=== PATIENT | male | born 1965 ===

== ENCOUNTER 2016-10-31 14:58 | Emergency (ER) | payer OTHER ==
--- NOTE | 2016-10-31 15:54 | C.PDOC ---
History Of Present Illness <Quintin Patrick - Last Filed: 10/31/16 15:49> <Kaitlin Mckoy - Last Filed: 10/31/16 16:05> 51 year old male presents to the ED with complaints of pain persisting to left side ribs after falling off of ladder and directly on to a table five days ago. Patient was seen at another hospital, a chest x-ray was performed with results of normal lungs and discharged. Patient denies shortness of breath and any new injuries at this time. (Quintin Patrick) 51 year old male presents to the ED with complaints of pain persisting to left side ribs after falling off of ladder and directly on to a table five days ago. Patient was seen at another hospital, a chest x-ray was performed with results of normal lungs and discharged. Patient denies shortness of breath and any new injuries at this time. (Kaitlin Mckoy) History Per: Patient History/Exam Limitations: no limitations Onset/Duration Of Symptoms: Days (5 days ago) Current Symptoms Are (Timing): Still Present Quality Of Discomfort: "Pain" <Quintin Patrick - Last Filed: 10/31/16 15:49> History Per: Patient History/Exam Limitations: no limitations Onset/Duration Of Symptoms: Days Current Symptoms Are (Timing): Still Present <Kaitlin Mckoy - Last Filed: 10/31/16 16:05> Time Seen by Provider: 10/31/16 15:27 Chief Complaint (Nursing): Back Pain Past Medical History Reviewed: Historical Data, Nursing Documentation, Vital Signs - Medical History PMH: Hyperlipidemia - Social History Hx Alcohol Use: No Hx Substance Use: No - Immunization History Hx Tetanus Toxoid Vaccination: No Hx Influenza Vaccination: No Hx Pneumococcal Vaccination: No <Quintin Patrick - Last Filed: 10/31/16 15:49> Reviewed: Historical Data, Nursing Documentation, Vital Signs Family History: States: Unknown Family Hx <Kaitlin Mckoy - Last Filed: 10/31/16 16:05> Vital Signs: Last Vital Signs Temp 97.9 F 10/31/16 15:10 Pulse 62 10/31/16 15:10 Resp 18 10/31/16 15:10 BP 114/65 10/31/16 15:10 Pulse Ox 96 10/31/16 15:59 Review Of Systems Constitutional: Negative for: Fever, Chills Respiratory: Negative for: Shortness of Breath, Hemoptysis, Wheezing Gastrointestinal: Negative for: Nausea, Vomiting, Diarrhea Musculoskeletal: Positive for: Other (left rib pain) <Quintin Patrick - Last Filed: 10/31/16 15:49> Constitutional: Negative for: Fever, Chills Respiratory: Negative for: Shortness of Breath, Hemoptysis, Wheezing Gastrointestinal: Negative for: Nausea, Vomiting, Diarrhea Musculoskeletal: Positive for: Back Pain (left rib pain ) <Kaitlin Mckoy - Last Filed: 10/31/16 16:05> Physical Exam - Physical Exam Appears: Non-toxic Skin: Warm, Dry Cardiovascular: Rhythm Regular Respiratory: No Wheezing Gastrointestinal/Abdominal: Soft, No Tenderness Back: Other (tenderness to left lateral ribs ) Neurological/Psych: Oriented x3 <Quintin Patrick - Last Filed: 10/31/16 15:49> - Physical Exam Appears: Non-toxic Skin: Warm, Dry Cardiovascular: Rhythm Regular Respiratory: No Wheezing Gastrointestinal/Abdominal: Soft, No Tenderness Back: Other (left lateral rib pain) Neurological/Psych: Oriented x3 <Kaitlin Mckoy - Last Filed: 10/31/16 16:05> ED Course And Treatment O2 Sat by Pulse Oximetry: 96 <Quintin Patrick - Last Filed: 10/31/16 15:49> - Scribe Statement The provider has reviewed the documentation as recorded by the Scribe <Quintin Patrick - Last Filed: 10/31/16 15:49> - Scribe Statement The provider has reviewed the documentation as recorded by the Scribe <Kaitlin Mckoy - Last Filed: 10/31/16 16:05> - Scribe Statement Radha Mack All medical record entries made by the Francine were at my direction and personally dictated by me. I have reviewed the chart and agree that the record accurately reflects my personal performance of the history, physical exam, medical decision making, and the department course for this patient. I have also personally directed, reviewed, and agree with the discharge instructions and disposition. (RasSweetie diaz All medical record entries made by the Scribe were at my direction and personally dictated by me. I have reviewed the chart and agree that the record accurately reflects my personal performance of the history, physical exam, medical decision making, and the department course for this patient. I have also personally directed, reviewed, and agree with the discharge instructions and disposition. (Kaitlin Mckoy)
--- NOTE | 2016-10-31 16:28 | C.PDOC ---
History Of Present Illness 51 year old male presents to the ED with complaints of pain persisting to left side ribs after falling off of ladder and directly on to a table five days ago. Patient was seen at another hospital, a chest x-ray was performed with results of normal lungs and discharged. Patient denies shortness of breath, hemoptysis, abdominal pain, nausea, vomiting, diarrhea, or any new injuries at this time. Time Seen by Provider: 10/31/16 15:27 Chief Complaint (Nursing): Back Pain History Per: Patient History/Exam Limitations: no limitations Onset/Duration Of Symptoms: Days, Persistent Current Symptoms Are (Timing): Still Present Quality Of Discomfort: Sharp, "Pain" Associated Symptoms: denies: Incontinence, New Weakness, New Numbness Exacerbating Factor(s): Movement, Other (deep breathing) Recent travel outside of the [place]: No Past Medical History Reviewed: Historical Data, Nursing Documentation, Vital Signs Vital Signs: Last Vital Signs Temp 98.6 F 10/31/16 17:00 Pulse 72 10/31/16 17:00 Resp 15 10/31/16 17:00 BP 121/77 10/31/16 17:00 Pulse Ox 98 10/31/16 17:00 - Medical History PMH: Hyperlipidemia Family History: States: Unknown Family Hx - Social History Hx Alcohol Use: No Hx Substance Use: No - Immunization History Hx Tetanus Toxoid Vaccination: No Hx Influenza Vaccination: No Hx Pneumococcal Vaccination: No Review Of Systems Except As Marked, All Systems Reviewed And Found Negative. Constitutional: Negative for: Fever, Chills Respiratory: Negative for: Shortness of Breath, Hemoptysis, Wheezing Gastrointestinal: Negative for: Nausea, Vomiting, Diarrhea Musculoskeletal: Positive for: Back Pain (left rib pain) Physical Exam - Physical Exam Appears: Non-toxic Skin: Warm, Dry Respiratory: No Wheezing Gastrointestinal/Abdominal: Soft, No Tenderness, No Guarding, No Rebound Back: Other (left lateral rib tenderness) Extremity: Normal ROM, No Tenderness Neurological/Psych: Oriented x3 ED Course And Treatment O2 Sat by Pulse Oximetry: 96 (on RA) Pulse Ox Interpretation: Normal Medical Decision Making Medical Decision Making: On re-exam, the patient reports improvement of symptoms. Ambulatory in the Ed with steady. Lungs are CTA, heart is RRR, abdomen is soft, non-tender and tolerating PO well. Disposition - Disposition Referrals: [facility] [Outside] Disposition: HOME/ ROUTINE Disposition Time: 17:00 Condition: GOOD Additional Instructions: Follow up with the medical doctor within 1-2 days. Return if worsened, Prescriptions: Lidocaine 5% [Lidoderm] 1 patch TOP DAILY PRN #10 patch PRN Reason: Pain, Moderate (4-7) traMADol [Ultram] 50 mg PO Q6 PRN #15 tab PRN Reason: Pain Instructions: Rib Fracture (ED) Forms: Work Excuse - Clinical Impression Clinical Impression: Rib fracture - Scribe Statement The provider has reviewed the documentation as recorded by the Scribe Radha Mack All medical record entries made by the Scribe were at my direction and personally dictated by me. I have reviewed the chart and agree that the record accurately reflects my personal performance of the history, physical exam, medical decision making, and the department course for this patient. I have also personally directed, reviewed, and agree with the discharge instructions and disposition.
[2016-10-31 17:03] VITALS: BP 121/77; PULSE 72; RESP 15; TEMP 98.6
--- NOTE | 2016-10-31 17:46 | RAD ---
PROCEDURE: Radiographs of the Chest and Left Ribs. HISTORY: pain with inspiration, injury to pain COMPARISON: None available. TECHNIQUE: Frontal radiograph of the chest and multiple oblique radiographs of the left ribs were obtained. FINDINGS: LEFT RIBS: No fracture or focal lesion visualized. LUNGS: Clear. PLEURA: No pneumothorax or pleural fluid. CARDIOVASCULAR: Normal sized heart. No pulmonary vascular congestion. OTHER FINDINGS: None. IMPRESSION: Unremarkable radiographs of the chest and left ribs. No left rib fracture.
[2016-10-31 23:48] VITALS: O2SAT 96
== END 2016-10-31 17:03 | disposition home or self-care (01) ==
LOC: C.ER 14:58
DX: S22.32XA Fracture of one rib, left side, initial encounter for closed fracture (principal); W11.XXXA Fall on and from ladder, initial encounter; Y93.89 Activity, other specified; Y92.9 Unspecified place or not applicable
CPT/HCPCS: 71101; 96372; 99283; J1885